=== PATIENT | female | born 1975 | race Caucasian/White ===

== ENCOUNTER 2022-12-08 13:03 | Emergency (ER) | payer MEDICAID, SELFPAY ==
[2022-12-08 13:05] VITALS: BP 94/58; PULSE 77; RESP 16; TEMP 36.6; O2SAT 100; BMI 20.6
--- NOTE | 2022-12-08 13:16 | CT_ITS ---
STUDY: CT BRAIN WITHOUT CONTRAST REASON FOR EXAM: Female, 47 years old. Headaches following injury. RADIATION DOSAGE (If Supplied By Facility): CTDIvol = ( 44.99 ) mGy, DLP = ( 779.24 ) mGycm TECHNIQUE: Transaxial CT imaging of the brain was performed without administration of intravenous contrast material. Individualized dose optimization techniques were used for this CT. COMPARISON: No relevant priors. FINDINGS: Normal soft tissue structures. Normal calvarium. Normal size ventricles and extra-axial spaces for the patient''s age. Normal white matter tracts of the cerebral hemispheres. Normal basal ganglia and thalami. Normal brainstem. Normal cerebellum. There is no intracranial hemorrhage. There are no findings of an acute ischemic infarction. Partial opacification of the maxillary sinuses as well as the ethmoid sinuses and sphenoid sinus. CT/Brain/Head without Contrast IMPRESSION: Normal unenhanced CT scan of the brain. Sinusitis. Electronically Signed: Baljinder Resendez MD at 14:38 EDT ,
--- NOTE | 2022-12-08 13:16 | CT_ITS ---
STUDY: CT CERVICAL SPINE WITHOUT CONTRAST REASON FOR EXAM: Female, 47 years old. Pain following injury. RADIATION DOSAGE (If Supplied By Facility): CTDIvol = ( 13.12 ) mGy, DLP = ( 262.96 ) mGycm TECHNIQUE: High resolution transaxial imaging was performed without contrast material. Sagittal and coronal images were reconstructed. Individualized dose optimization techniques were used for this CT. COMPARISON: None FINDINGS: Normal craniovertebral junction. Normal anterior atlantoaxial articulation. Normal odontoid process. Normal cervical lordosis. Normal vertebral bodies and posterior osseous elements. C2-3: Normal endplates. Normal disc height and morphology. Normal central canal and intervertebral neuroforamina. C3-4: Normal endplates. Normal disc height and morphology. Normal central canal and intervertebral neuroforamina. C4-5: Normal endplates. Normal disc height and morphology. Normal central canal and intervertebral neuroforamina. C5-6: Normal endplates. Normal disc height and morphology. Normal central canal and intervertebral neuroforamina. C6-7: Normal endplates. Normal disc height and morphology. Normal central canal and intervertebral neuroforamina. C7-T1: Normal endplates. Normal disc height and morphology. Normal central canal and intervertebral neuroforamina. Normal visualized soft tissue structures. CT/Spine Cervical without Contras IMPRESSION: Normal unenhanced CT examination of the cervical spine. Electronically Signed: Baljinder Resendez MD at 14:39 EDT ,
--- NOTE | 2022-12-08 13:16 | CT_ITS ---
STUDY: CT CHEST, ABDOMEN T PELVIS WITH CONTRAST REASON FOR EXAM: Female, 47 years old. Trauma -- TRAUMA ONLY: IV Contrast. Dont wait for creatinine RADIATION DOSAGE (If Supplied By Facility): CTDIvol = ( 11.39 ) mGy, DLP = ( 649.64 ) mGycm TECHNIQUE: Transaxial imaging was performed following intravenous administration of IV 100mL Isovue-370. Multiplanar coronal and sagittal images were reformatted. Individualized dose optimization techniques were used for this CT. COMPARISON: No relevant priors. FINDINGS: CHEST Minimal linear scarring at the lung apices. There is no demonstrated pleural abnormality. Normal heart and pericardium. Normal mediastinum. Normal hilar regions. Normal unenhanced pulmonary arteries. Normal aorta arch and descending thoracic aorta. Normal osseous structures. There is no demonstrated abnormality of the visualized upper abdomen. ABDOMEN The visualized lung bases are unremarkable. The visualized portions of the heart are within normal limits. Normal liver. Normal gallbladder and extrahepatic biliary system. Normal spleen. Normal pancreas. Normal bilateral adrenal glands. Normal right kidney. Normal left kidney. Normal visualized stomach. Normal small intestine. Normal colon. The appendix is visualized and appears normal. Normal abdominal aorta. Normal inferior vena cava. Normal retroperitoneum. Normal abdominal wall. Normal osseous structures. PELVIS Normal urinary bladder. Normal visualized small intestine. Normal visualized colon. There is no pelvic fluid. There is no pelvic lymphadenopathy or mass lesion. Normal visualized pelvic arteries. Normal abdominal wall. Normal osseous structures. CT/CT Chest, Abd, Pel w/Contrast IMPRESSION: Normal enhanced CT chest, abdomen T pelvis examination. Electronically Signed: Baljinder Resendez MD at 14:50 EDT ,
--- NOTE | 2022-12-08 13:19 | EX.ED.GENINJ ---
HPI History of Present Illness Chief Complaint: Trauma Narrative Narrative: 47-year-old female, past medical history of asthma presents as a trauma after being kicked multiple times by her horse. She states that she had while she was on the ground, the horse reared, and ending up kicking her multiple times. She states that she was kicked in the head, right elbow, right ribs, and right abdomen. She complains of pain all on the right side. She denies loss of consciousness, she thought that maybe she was going to pass out. She has pain when she tries to move her right elbow mainly. She has pain all on the right side. [facility] Medical History Asthma Home Medications hydrocodone-acetaminophen 5-325mg 5mg-325mg 1 tab PO Q6H PRN pain 2 days #6 tabs 12/08/22 [Rx Last Taken Unknown] ibuprofen 800 mg tablet 800 mg PO Q8H PRN pain #20 tabs 12/08/22 [Rx Last Taken Unknown] Social History Smoking Status: Unknown if ever smoked ROS ROS ED ROS Narrative Constitutional: No fever, no chills. HEENT: No sore throat. No neck pain. No loss of vision. No rhinorrhea. Cardiovascular: Positive right-sided chest pain. No palpitations. No pedal edema. Respiratory: No cough, no shortness of breath. Abdominal: Right upper quadrant and lower quadrant abdominal pain. No nausea. No vomiting. Genitourinary: No dysuria. No hematuria. Musculoskeletal: No myalgias. Right elbow pain worse with movement. Neurologic: Positive headaches. No dizziness. No lightheadedness. Skin: No rash. No change in color. Psychiatric: No depression. No anxiety. EXAM Physical Exam Narrative Exam Narrative: Afebrile. Vital signs noted. GCS 15. ABCs intact. HEENT: Normocephalic. Atraumatic. PERRL, EOMI. Neck soft and supple. No point tenderness or step off. Cardiovascular: Regular rate and rhythm. No murmurs, rubs, or gallops appreciated. Diffuse tenderness to palpation right ribs no crepitance, more anteriorly. Respiratory: No tachypnea. Lungs clear to auscultation bilaterally. Gastrointestinal: Abdomen soft, with tenderness in right upper quadrant to right lower quadrant with normoactive bowel sounds. No rebound or guarding. Neurological: Awake. Alert. Nonfocal, nonlateralizing. Skin: No rash. Normal color. No pallor. Musculoskeletal: No pedal edema. Diffuse right elbow pain. Palpable radial pulse. Range of motion of right elbow limited secondary to pain. Const Vital Signs: 12/08/22 13:05 12/08/22 13:05 12/08/22 14:59 Temperature 97.8 F Temperature Source Temporal Pulse Rate 77 78 Respiratory Rate 16 16 Respiratory Effort Normal Non-Labored Respiratory Depth Normal Respiratory Pattern Normal Blood Pressure 94/58 L 94/64 Blood Pressure Mean 70 74 Pulse Ox 100 94 Oxygen Delivery Method Room Air Room Air MDM MDM MDM Narrative Medical decision making narrative: Patient administered fentanyl for analgesia. Comprehensive work-up was pursued. In order to optimize imaging, CT of the abdomen, chest, and pelvis will be obtained with IV contrast. She is hypotensive with a systolic blood pressure of 94, but this may be her baseline as she is still mentating well. Multiple imaging modalities will also be obtained as she states she was kicked in the head so CT of the head neck will be obtained to rule out fracture or intracranial hemorrhage. X-rays of the right humerus and forearm will also be obtained. I reviewed the patient's laboratory work and she has a normal white count of 7.6, hemoglobin normal at 13.7, electrolyte panel is grossly unremarkable with a normal glucose of 94, normal sodium of 138 normal potassium of 3.9. I reviewed and interpreted her x-rays of her right humerus and of her right forearm and see no evidence of fracture. I reviewed the radiology report which confirms my independent interpretation. CT of the abdomen and pelvis was obtained and radiology report reviewed with no evidence of an acute process, no liver laceration, CT of the chest, and abdomen, and pelvis also shows no evidence of acute rib fracture or pneumothorax. CT of the brain and cervical spine shows no evidence of acute skull fracture or hemorrhage, no cervical spine fracture. At this point in time, I feel she can be discharged safely home with follow-up. She requested that Adma wrap be applied to her elbow. She also requested something stronger for pain for a day, so she was written a prescription for [place] tablets. She was warned of the risk of nausea, vomiting, constipation, drowsiness, and addiction with use of narcotic pain medication and acknowledges an understanding, she was also written a prescription for ibuprofen 800 mg to take, she will apply ice to the affected areas and follow-up with her primary care provider. Disposition is discharged home in stable condition. I do not feel that she requires observation. History & Record Review Discussion w/independent historian: Patient and Family Additional record(s) reviewed:: No prior records Lab Data Attestation: I reviewed the patient's lab results. Labs: Laboratory Results - last 24 hr 12/08/22 12/08/22 13:25 13:25 WBC 7.6 RBC 4.72 Hgb 13.7 Hct 41.0 MCV 86.9 MCH 29.0 MCHC 33.4 RDW Std Deviation 40.0 RDW Coeff of Denzel 12.7 Plt Count 385 MPV 10.3 Immature Gran % (Auto) 0.300 Neut % (Auto) 45.6 L Lymph % (Auto) 42.3 H [place] % (Auto) 4.3 Eos % (Auto) 5.8 H Baso % (Auto) 1.7 H Absolute Neuts (auto) 3.5 Absolute Lymphs (auto) 3.23 Nucleated RBC % 0 Sodium 138 Potassium 3.9 Chloride 107 Carbon Dioxide 25.0 Anion Gap 6 BUN 14 Creatinine 0.75 Estim Creat Clear Calc 81.50 Est GFR (MDRD) Af Amer 108 Est GFR (MDRD) Non-Af 89 BUN/Creatinine Ratio 18.8 Glucose 94 Calcium 9.3 Radiography Diagnostic Testing: Clinical Impression(s) from Imaging Studies Brain CT 12/08/22 13:16 IMPRESSION: Normal unenhanced CT scan of the brain. Sinusitis. Electronically Signed: Baljinder Resendez MD at 14:38 EDT , Cervical Spine CT 12/08/22 13:16 IMPRESSION: Normal unenhanced CT examination of the cervical spine. Electronically Signed: Baljinder Resendez MD at 14:39 EDT , Chest/Abdomen/Pelvis CT 12/08/22 13:16 IMPRESSION: Normal enhanced CT chest, abdomen T pelvis examination. Electronically Signed: Baljinder Resendez MD at 14:50 EDT , Forearm X-Ray 12/08/22 13:50 IMPRESSION: Normal x-ray examination of the radius and ulna. Electronically Signed: Baljinder Resendez MD at 14:10 EDT , Humerus X-Ray 12/08/22 13:50 IMPRESSION: Normal x-ray examination of the humerus. Electronically Signed: Baljinder Resendez MD at 14:10 EDT , Discharge Plan Triage Chief Complaint: Trauma ED Provider: Shane Morales Dx/Rx/DC Orders Clinical Impression: Contusion of elbow, right, Contusion of rib on right side, Abdominal contusion, Closed head injury Instructions: ED Abd Injury Blunt Benign, ED Contusion, Elbow, ED Chest Wall Contusion, ED Head Injury (Adult) Prescriptions: New hydrocodone-acetaminophen 5-325 mg tablet 1 tab PO Q6H PRN (Reason: pain) 2 Days Qty: 6 0RF ibuprofen 800 mg tablet 800 mg PO Q8H PRN (Reason: pain) Qty: 20 0RF Primary Care Provider: Shasha Mon Referrals: Shasha Mon MD [Primary Care Provider] - Activity Restrictions/Additional Instructions: Apply ice to your multiple affected areas. Beware of nausea, vomiting, drowsiness, constipation, and addiction with the use of narcotic pain medication. Follow-up with your primary care provider in the next 3 to 5 days if no improvement. Disposition Disposition: Home, Self Care
[2022-12-08] MEDS: 0.9% Normal Saline 1,000 ML 999 ML IV (13:23)
[2022-12-08] MEDS: fentaNYL 100 MCG/2 ML Ampul 50 MCG IV (13:24)
[2022-12-08 13:35] LABS: Absolute Lymphocyte Count 3.23 X10^3/uL (0.83-4.51); Absolute Neutrophil Count 3.5 X10^3/uL (2.0-7.7); Basophil# 0.13 X10^3/uL; Basophil% 1.7 % (0-1); Eosinophil# 0.44 X10^3/uL; Eosinophils% 5.8 % (0-5); Hemoglobin 13.7 g/dL (12.0-15.0); Lymphocyte # 3.23 X10^3/ul (0.83-4.51); Lymphocyte % 42.3 % (19-41); Mean Corp Hgb Conc 33.4 g/dL (32-36); Mean Corpuscular Volume 86.9 fL (81-99); Mean Platelet Vol. 10.3 fl (6.2-12.0); Monocyte# 0.33 X10^3/uL; Monocyte% 4.3 % (0-10); NRBC Flagged by Analyzer 0 % (0-5); Neutrophil # 3.49 X10^3/uL (2.7-7.7); Neutrophil % 45.6 % (47-70); Platelet Count 385 K/mm3 (150-450); RBC Distribution Width CV 12.7 % (11.6-14.6); Red Blood Count 4.72 M/mm3 (4.2-5.4); White Blood Count 7.6 K/mm3 (4.4-11.0)
[2022-12-08 13:49] LABS: Anion Gap 6 (5-15); BUN 14 mg/dL (7-18); BUN/Creat Ratio 18.8 RATIO (10-20); Calcium,Total 9.3 mg/dL (8.5-10.1); Chloride 107 mmol/L (98-107); Creatinine, Serum 0.75 mg/dL (0.55-1.02); EST Glomerular Filtration Rate 89 mL/min (>60); Est Glom Filt Rate - Afr Amer 108 mL/min (>60); Glucose 94 mg/dL (74-106); Potassium 3.9 mmol/L (3.5-5.1); Sodium Level 138 mmol/L (136-145)
--- NOTE | 2022-12-08 13:50 | RAD_ITS ---
STUDY: X-RAY - RIGHT RADIUS AND ULNA REASON FOR EXAM: Female, 47 years old. Trauma, pain TECHNIQUE: 2 view(s) of the forearm. COMPARISON: None. FINDINGS: There is no demonstrated soft tissue swelling. Normal visualized radius. Normal visualized ulna. RAD/Forearm 2 Views IMPRESSION: Normal x-ray examination of the radius and ulna. Electronically Signed: Baljinder Resendez MD at 14:10 EDT ,
--- NOTE | 2022-12-08 13:50 | RAD_ITS ---
STUDY: X-RAY - RIGHT HUMERUS REASON FOR EXAM: Female, 47 years old. Trauma, pain TECHNIQUE: 2 view(s) of the humerus. COMPARISON: None. FINDINGS: Normal visualized humerus. There is no demonstrated fracture or osseous destructive process. There is no demonstrated soft tissue abnormality. RAD/Humerus min 2 Views IMPRESSION: Normal x-ray examination of the humerus. Electronically Signed: Baljinder Resendez MD at 14:10 EDT ,
[2022-12-08 14:59] VITALS: BP 94/64; PULSE 78; RESP 16; O2SAT 94
== END 2022-12-08 15:53 | disposition home or self-care (01) ==
PROVIDERS: Emergency Provider Emergency Medicine; PCP Pediatrics; Visit Provider Emergency Medicine
DX: S50.01XA Contusion of right elbow, initial encounter (principal); S20.211A Contusion of right front wall of thorax, initial encounter; S30.1XXA Contusion of abdominal wall, initial encounter; S09.90XA Unspecified injury of head, initial encounter; W55.89XA Other contact with other mammals, initial encounter
CPT/HCPCS: 70450; 71260; 72125; 73060; 73090; 74177; 80048; 85025; 96361; 96374; 99285; Q9967

== ENCOUNTER 2023-03-11 09:53 | Emergency (ER) | payer MEDICAID, SELFPAY ==
[2023-03-11 09:54] VITALS: BP 104/73; PULSE 113; RESP 16; TEMP 36.6; O2SAT 97; BMI 20.9
--- NOTE | 2023-03-11 10:10 | CT_ITS ---
HISTORY: blunt trauma. TECHNIQUE: Helically acquired images were obtained of the chest, abdomen, and pelvis after the intravenous administration of 100mL Isovue-300. No oral contrast was administered. 2-D reformatted images provided. A radiation dose optimization technique was used for this scan. 1147 images. COMPARISON: 12/08/2022. FINDINGS: ----Chest: LARGE AIRWAYS: Patent. LUNGS: Calcified right lower lobe granuloma with chronic minimal scarring and dependent atelectasis. Stable formalin and noncalcified lingular nodule. PLEURA: No pneumothorax or significant pleural effusion. HEART AND PERICARDIUM: Heart within normal limits in size, intact appearance. No significant pericardial effusion. VESSELS: No thoracic aortic aneurysm or dissection flap. No filling defect in the pulmonary arteries suggest acute pulmonary embolism. MEDIASTINUM AND DIVYA: No gross acute mediastinal hematoma. Small calcified right hilar lymph nodes. No pathologically enlarged lymph nodes. BONES: Intact without acute displaced fracture identified. ----Abdomen/Pelvis: BOWEL: Bowel including appendix nondilated. No focal pericolonic inflammatory change. PERITONEUM: No free air or significant free fluid. LIVER: Homogeneous without focal lesion. GALLBLADDER/BILIARY TREE: Gallbladder present. PANCREAS: Unchanged appearance. PANCREAS/KIDNEYS/ADRENAL GLANDS: Intact. VESSELS: Normal caliber and contour of the abdominal aorta. PELVIC ORGANS: 3.3 cm septated right pelvic cystic lesion. Prominent left adnexal vessels again seen. ABDOMINAL WALL: No fluid collections identified. BONES: No acute fracture or dislocation. Mild lumbar levocurvature. CT/CT Chest, Abd, Pel w/Contrast IMPRESSION: No evidence for acute abnormality in the chest. Stable calcified right lower lobe granuloma. Stable 4 mm lingular pulmonary nodule. Fleischner Society Guidelines suggest no follow-up is necessary for patients with a low or high risk of malignancy. No evidence for acute intra-abdominal or pelvic trauma. Small septated right ovarian cyst or hydrosalpinx without significant free fluid in the pelvis. Electronically Signed: Trini Hale MD at 11:22 EDT ,
--- NOTE | 2023-03-11 10:20 | EX.ED.GENINJ ---
HPI History of Present Illness Chief Complaint: Abd Pain Informant: patient Narrative Narrative: Just prior to arrival, patient was kicked by one of her horses extremely hard, with both back feet in her upper-mid abdomen. Diffuse severe abdominal pain, as well as developing pain in her lower chest and ribs now bilaterally. She states it does hurt to take a really deep breath and it is diffuse and more upper abdominal when she does so. She is not dyspneic. She denies any nausea or vomiting. No loss of consciousness, she did not fall and injure anything else. She is healthy otherwise except for asthma which is not an acute issue right now, and takes no anticoagulants or antiplatelets. [facility] Medical History Asthma Depression History of kidney stones Home Medications albuterol sulfate 90 mcg/actuation aerosol inhaler (Ventolin HFA) 2 inh inhalation Q4H PRN wheezing 03/11/23 [History Last Taken Unknown] hydrocodone-acetaminophen 5-325mg 5mg-325mg 1 tab PO Q6H PRN PRN Pain 3 days #10 TABLETS 03/11/23 [Rx Last Taken Unknown] sertraline 100 mg tablet 100 mg PO DAILY 03/11/23 [History Last Taken Unknown] Allergy/AdvReac Type Severity Reaction Status Date / Time No Known Allergies Allergy Verified 03/11/23 09:56 Social History Smoking Status: Unknown if ever smoked ROS [facility] ED Constitutional Constitutional ED: Denies chills or fever(s) Eyes Eyes: Denies change in vision or diplopia ENT ENT ED: Denies ear pain, epistaxis, facial pain or rhinorrhea Cardiovascular Cardiovascular: Reports chest pain; Denies palpitations Respiratory/Chest Respiratory/Chest: Denies cough or dyspnea Gastrointestinal Gastrointestinal: Reports abdominal pain; Denies diarrhea, melena, nausea or vomiting Genitourinary Genitourinary ED: Denies dysuria or hematuria Musculoskeletal Musculoskeletal: Denies back pain, extremity pain or neck pain Integumentary Denies abscess, Abrasions, laceration or rash Neurologic Neurologic: Denies confusion, headache(s), paresthesias or weakness EXAM Physical Exam Const Vital Signs: 03/11/23 09:54 Temperature 98 F Temperature Source Temporal Pulse Rate 113 H Respiratory Rate 16 Blood Pressure 104/73 Blood Pressure Mean 83 Pulse Ox 97 Oxygen Delivery Method Room Air Positive well nourished and well developed General Appearance ED: well developed and NAD HEENT Reports TM's clear and nasal mucous membranes and turbinates normal atraumatic Face and Sinus: Negative for facial tenderness Tympanic Membrane ED: Yes TM's clear Eyes PERRL and EOMs intact bilaterally Visual Acuity: other Other Details: no entrapment or pain with extraocular movements Neck full ROM and supple General: Negative for tenderness Chest Wall inspection of chest normal and palpation of chest normal Chest: symmetrical chest wall rise; Negative for crepitus or tenderness Resp normal respiratory effort and clear to auscultation bilaterally Resp Narrative: Equal breath sounds present bilaterally. Tender lower sternum without crepitance or deformity, tender throughout lower ribs anterolaterally diffusely nonfocally. There is no flail, crepitance. Cardio no murmurs Rate: regular rate and tachycardic Rhythm: regular rhythm GI soft to palpation GI Narrative: Abdomen is soft and nondistended, diffusely tender with voluntary guarding. No major outward signs of trauma. Back/Spine normal ROM Cervical Spine: Negative for cervical spine tenderness Thoracic Spine / Upper Back: Negative for thoracic spinal tenderness Lumbar Spine / Lower Back: Negative for lumbar spinal tenderness Extremity normal to inspection and full ROM General Extremety ED: Negative for tenderness Neuro oriented x3, CN's II-XII intact bilaterally, moves all extremities, no focal motor deficits and no sensory deficits noted Sirena Coma Scale: document GCS findings Spontaneous Obeys Commands Oriented 15 Sensorium / Orientation: awake and alert Psych mental status grossly normal and thought process normal Skin no wounds Lesions: no lesions Rashes: no rashes MDM MDM MDM Narrative Medical decision making narrative: IV contrasted CT of the chest, abdomen, pelvis were obtained, negative for any acute traumatic injury. I reviewed the images and the report which I agree with, on reevaluation patient's vital signs are still normal she is doing well after analgesics, and reassured. She is having no ectopy on the monitor, I do not think we need to evaluate her for myocardial contusion since she does not have sternal fracture or any other acute traumatic injury on imaging. She will be prescribed something for pain and discharged. Lab Data Attestation: I reviewed the patient's lab results. Labs: Laboratory Results - last 24 hr 03/11/23 10:25 WBC 8.3 RBC 4.91 Hgb 14.2 Hct 43.0 MCV 87.6 MCH 28.9 MCHC 33.0 RDW Std Deviation 39.7 RDW Coeff of Denzel 12.4 Plt Count 479 H MPV 9.6 Immature Gran % (Auto) 0.200 Neut % (Auto) 50.2 Lymph % (Auto) 35.5 [place] % (Auto) 4.7 Eos % (Auto) 8.7 H Baso % (Auto) 0.7 Absolute Neuts (auto) 4.1 Absolute Lymphs (auto) 2.93 Nucleated RBC % 0 Sodium 137 Potassium 4.4 Chloride 104 Carbon Dioxide 27.0 Anion Gap 6 BUN 16 Creatinine 0.71 Estim Creat Clear Calc 85.50 Est GFR (MDRD) Af Amer 113 Est GFR (MDRD) Non-Af 94 BUN/Creatinine Ratio 22.4 H Glucose 87 Calcium 9.5 Total Bilirubin 0.20 AST 22 ALT 24 Alkaline Phosphatase 66 Total Protein 7.9 Albumin 4.1 Globulin 3.8 Albumin/Globulin Ratio 1.1 Blood Type O POSITIVE Antibody Screen NEGATIVE Radiography Diagnostic Testing: Clinical Impression(s) from Imaging Studies Chest/Abdomen/Pelvis CT 03/11/23 10:10 IMPRESSION: No evidence for acute abnormality in the chest. Stable calcified right lower lobe granuloma. Stable 4 mm lingular pulmonary nodule. Fleischner Society Guidelines suggest no follow-up is necessary for patients with a low or high risk of malignancy. No evidence for acute intra-abdominal or pelvic trauma. Small septated right ovarian cyst or hydrosalpinx without significant free fluid in the pelvis. Electronically Signed: Trini Hale MD at 11:22 EDT , Rhythm Strip Rhythm Strip: Sinus Tach Rate: 102 Ectopy: None Discharge Plan Triage Chief Complaint: Abd Pain ED Provider: Brian Parikh Dx/Rx/DC Orders Clinical Impression: Blunt traumatic injury of [id number] region Instructions: ED Abd Injury Blunt Benign Prescriptions: New hydrocodone-acetaminophen [hydrocodone-acetaminophen] 5-325 mg tablet 1 tab PO Q6H PRN PRN (Reason: Pain) 3 Days Qty: 10 0RF No Action sertraline 100 mg tablet 100 mg PO DAILY Patient Comments: TAKE 1 TABLET BY MOUTH ONCE DAILY albuterol sulfate [Ventolin HFA] 90 mcg/actuation HFA aerosol inhaler 2 inh INHALATION Q4H PRN (Reason: wheezing) Patient Comments: INHALE 2 PUFFS BY MOUTH DIRECTED EVERY 4 HOURS NEEDED FOR WHEEZING AND FOR SHORTNESS OF BREATH Primary Care Provider: Shasha Mon Referrals: Shasha Mon MD [Primary Care Provider] - As Needed
[2023-03-11] MEDS: Ondansetron 4 MG/2 ML Vial IV (10:30)
[2023-03-11] MEDS: 0.9% Normal Saline 1,000 ML 999 ML IV (10:30)
[2023-03-11] MEDS: fentaNYL 100 MCG/2 ML Ampul 50 MCG IV (10:31)
[2023-03-11 10:36] LABS: Absolute Lymphocyte Count 2.93 X10^3/uL (0.83-4.51); Absolute Neutrophil Count 4.1 X10^3/uL (2.0-7.7); Basophil# 0.06 X10^3/uL; Basophil% 0.7 % (0-1); Eosinophil# 0.72 X10^3/uL; Eosinophils% 8.7 % (0-5); Hemoglobin 14.2 g/dL (12.0-15.0); Lymphocyte # 2.93 X10^3/ul (0.83-4.51); Lymphocyte % 35.5 % (19-41); Mean Corpuscular Hgb 28.9 pg (27.0-32.0); Mean Corpuscular Volume 87.6 fL (81-99); Mean Platelet Vol. 9.6 fl (6.2-12.0); Monocyte# 0.39 X10^3/uL; Monocyte% 4.7 % (0-10); NRBC Flagged by Analyzer 0 % (0-5); Neutrophil # 4.13 X10^3/uL (2.7-7.7); Neutrophil % 50.2 % (47-70); Platelet Count 479 K/mm3 (150-450); RBC Distribution Width CV 12.4 % (11.6-14.6); RBC Distribution Width SD 39.7 fl (35.1-43.9); Red Blood Count 4.91 M/mm3 (4.2-5.4); White Blood Count 8.3 K/mm3 (4.4-11.0)
[2023-03-11 10:54] LABS: ALB/GLOB Ratio 1.1 RATIO (0.9-2.4); AST(SGOT) 22 U/L (15-37); Alanine Aminotransfer ALT/SGPT 24 U/L (13-56); Albumin, Serum 4.1 g/dL (3.2-5.0); Alkaline Phosphatase 66 U/L (45-117); Anion Gap 6 (5-15); BUN 16 mg/dL (7-18); BUN/Creat Ratio 22.4 RATIO (10-20); Calcium,Total 9.5 mg/dL (8.5-10.1); Chloride 104 mmol/L (98-107); Creatinine, Serum 0.71 mg/dL (0.55-1.02); EST Glomerular Filtration Rate 94 mL/min (>60); Est Glom Filt Rate - Afr Amer 113 mL/min (>60); Globulin 3.8 g/dL (2.2-4.2); Glucose 87 mg/dL (74-106); Potassium 4.4 mmol/L (3.5-5.1); Protein, Total 7.9 g/dL (6.4-8.2); Sodium Level 137 mmol/L (136-145)
[2023-03-11 12:02] LABS: Bacteria 0 SEEN /hpf (None Seen); Mucous, Urine 0 SEEN /hpf (<or=2+); Red Blood Cells-Urine 0 SEEN /hpf (0-5); White Blood Cells 0 SEEN /hpf (0-5)
[2023-03-11 12:12] VITALS: BP 124/66; PULSE 91; RESP 16; O2SAT 98
[2023-03-11 12:14] LABS: Color, Urine Yellow (Yellow); Glucose, Dipstick Normal (Normal); Ketone-Dipstick Negative (Negative); Leukocyte Esterase-Dipstick Negative /ul (Negative); Nitrite-Dipstick Negative (Negative); Occult Blood-Urine Negative /ul (Negative); Protein-Dipstick Negative (Negative); Specific Gravity, Urine 1.015 (1.002-1.030); Urine Bilirubin Dipstick Negative (Negative); Urine Clarity Clear (Clear); Urine Urobilinogen Normal (Normal)
[2023-03-11 12:21] LABS: Squamous Epithelial Cells - UA 0-5 SEEN /hpf (5-10)
== END 2023-03-11 12:13 | disposition home or self-care (01) ==
LOC: ED 11:47
PROVIDERS: Emergency Provider Emergency Medicine; PCP Pediatrics; Visit Provider Emergency Medicine
DX: S39.91XA Unspecified injury of abdomen, initial encounter (principal); F32.A Depression, unspecified; Z79.899 Other long term (current) drug therapy; W55.12XA Struck by horse, initial encounter
CPT/HCPCS: 71260; 74177; 80053; 81001; 85025; 86850; 86900; 86901; 96361; 96374; 96375; 99283; J7030; Q9967; A4216; J2405